=== PATIENT | male | born 1950 | race Caucasian/White ===

== ENCOUNTER → 2020-11-23 | Outpatient (CLI) | payer BC, OTHER ==
[~2020-11-23] MED LIST: ALLOPURINOL 30300 M1 PO; AMOXICILLIN 50500 MG PO; ASA81BEC PO; ATORVASTATIN CA80 MG PO; BENADRYL25 MG PO; BUDESONIDE EC3 MG PO; CARVEDILOL12.5 MG PO; L-LYSINE1000 M1 PO; MELATONIN10 M3 PO; NAPROSYN500 MG PO; OLMESARTAN-HCT1 EAC2 PO
== END ==
LOC: LAB 09:20
PROVIDERS: ATTEND Orthopaedic Surgery
DX: Z01.812 Encounter for preprocedural laboratory examination (principal); Z20.822 Contact with and (suspected) exposure to COVID-19

== ENCOUNTER 2020-11-28 11:33 | Day surgery (SDC) | payer BC, OTHER ==
[~2020-11-28] VITALS: Ht 5 cm; Wt 106.1 kg
[2020-11-28 12:36] VITALS: BP 150/55
[2020-11-28] MEDS ORDERED: NORCO5 PO (14:29)
[2020-11-28 15:16] VITALS: BP 150/55
--- NOTE | 2020-12-03 08:23 | O ---
[facility] [place] [address] OPERATIVE REPORT Name: FRANCESCA GUSMAN Room #: DEP [facility]#: [id number] Admission: 11/28/20 Attend Phys: Troy Melchor MD Discharge: 11/28/20 Date of : 54 Report #: [id number] THIS REPORT FOR: cc: Shirley Merchant MD,Shirley Melchor,Troy Izaguirre MD ~ DATE OF SERVICE: 11/28/2020 PREOPERATIVE DIAGNOSIS: Left knee medial meniscus tear. POSTOPERATIVE DIAGNOSES: 1. Left knee medial meniscus tear. 2. Grade 4 chondromalacia medial femoral condyle. 3. Grade 3 chondromalacia patella. PROCEDURES: 1. Left knee arthroscopy with partial medial meniscectomy. 2. Chondroplasty, medial femoral condyle. SURGEON: Troy Melchor MD. BOILER CLEANER: Mitzy Ontiveros PA-C. ANESTHESIA: LMA. TOURNIQUET TIME: 12 minutes. ESTIMATED BLOOD LOSS: Minimal. COMPLICATIONS: None. SPECIMENS: None. CONDITION UPON LEAVING THE OPERATING ROOM: Stable. INDICATIONS FOR PROCEDURE: The patient is a 70-year-old gentleman who has had medial-sided left knee pain and MRI scan shown to have a tear of the posterior horn of the medial meniscus as well as mild to moderate arthritic change. After discussion with him, he elected for left knee arthroscopy with medial meniscectomy and debridement as needed. DESCRIPTION OF PROCEDURE: Risks, benefits, alternatives, complications were discussed in detail with the patient including but not limited to risk of anesthesia, risk of damage to nerves, arteries, blood vessels, risk for infection, bleeding, risk for continued knee pain, need for reoperation. [address] [address] OPERATIVE REPORT Name: FRANCESCA GUSMAN Room #: DEP [facility] MMakayla.#: [id number] Admission: 11/28/20 Attend Phys: Troy Melchor MD Discharge: 11/28/20 Date of : 54 Report #: [id number] Informed consent was obtained from the patient. Left knee was appropriately marked in the preoperative holding area. IV Ancef was given for preoperative antibiotics. He was brought to the operating room and placed in the supine position on the operating room table. LMA anesthesia was induced without complication. Tourniquet was placed on the left thigh. Left lower extremity was prepped and draped in normal sterile fashion. Timeout was performed properly identifying the patient and procedure as well as the instrumentation. All in the operating room were in agreement. Left lower extremity was exsanguinated, tourniquet was inflated. Tourniquet time was approximately 12 minutes. Standard anterolateral portal was established with 11 blade through the skin. Arthroscope was introduced into the patellofemoral compartment, diagnostic arthroscopy was undertaken. Patellofemoral compartment was visualized and found to have grade 3 chondromalacia of the apex of the patella. Medial gutter was visualized and found to be without pathology. Medial compartment was visualized and medial portal was established under arthroscopic visualization. Probe was introduced into the medial compartment. There was noted to be a complex tear of the posterior horn of medial meniscus. This was trimmed back to a stable rim with arthroscopic biter and smoothed back with a shaver. There was also grade 4 chondromalacia of the medial femoral condyle with several unstable cartilaginous flaps. Chondroplasty of this area was performed. Notch was visualized and found to have an intact anterior cruciate ligament. Lateral compartment was visualized and found to have an intact lateral meniscus. Lateral gutter was visualized and found to be without pathology. After the scope was placed back in the patellofemoral compartment and all fluid was allowed to drain from the knee, knee was injected with 10 mL of 0.5% Marcaine. Incision was closed with 3-0 nylon. Soft dressing of Adaptic, 4 x 4, Webril, Jose wrap were applied. The patient tolerated this procedure well and went to recovery room under care of anesthesia postoperatively. <ELECTRONICALLY SIGNED> By: Troy Melchor MD 12/03/20 0823 1750 1807 Troy Melchor MD /nt
== END 2020-11-28 16:04 | disposition home or self-care (01) ==
LOC: TBA 11:33 → OR 11:33
PROVIDERS: ATTEND Orthopaedic Surgery
DX: M23.322 Other meniscus derangements, posterior horn of medial meniscus, left knee (principal); M94.262 Chondromalacia, left knee; I10 Essential (primary) hypertension; E78.5 Hyperlipidemia, unspecified; I25.2 Old myocardial infarction; Z98.890 Other specified postprocedural states; Z79.899 Other long term (current) drug therapy; Z87.891 Personal history of nicotine dependence; Z95.1 Presence of aortocoronary bypass graft; X58.XXXA Exposure to other specified factors, initial encounter; Y93.89 Activity, other specified; Y92.89 Other specified places as the place of occurrence of the external cause; Y99.8 Other external cause status
CPT/HCPCS: 50010; 50101; 50405; 56525; 57103; 57180; 58577; 58589; 62110; 62900; 70005

== ENCOUNTER → 2021-04-16 | Outpatient (CLI) | payer BC, OTHER ==
[~2021-04-16] MED LIST changes: +NORCO5 PO; +VALACYCLOVIR500 MG PO
[2021-04-16 11:44] LABS: HEMATOCRIT 36.6 % (42.0-52.0); HEMOGLOBIN 12.2 gm/dL (14.0-18.0); MCH 33.2 pg (26.0-34.0); MCHC 33.3 g/dL (28.0-37.0); MCV 99.7 fL (80.0-100.0); RBC 3.67 mil/uL (4.50-6.00); RDW 14.6 % (10.5-14.5); WBC 5.9 thou/uL (4.0-11.0)
[2021-04-16 11:46] LABS: URINE BILIRUBIN NEGATIVE (Negative); URINE BLOOD NEGATIVE (Negative); URINE CLARITY CLEAR; URINE COLOR YELLOW; URINE GLUCOSE-RANDOM* NEGATIVE (Negative); URINE KETONES NEGATIVE (Negative); URINE LEUKOCYTES-REFLEX NEGATIVE (Negative); URINE NITRITE-REFLEX NEGATIVE (Negative); URINE PROTEIN (DIPSTICK) NEGATIVE (Negative); URINE UROBILINOGEN 0.2 E.U./dl (0.2-1.0)
[2021-04-16 11:52] LABS: CALCIUM 9.4 mg/dL (8.5-10.1); CREATININE 1.5 mg/dL (0.7-1.3); POTASSIUM 4.1 mmol/L (3.5-5.1)
[2021-04-16 11:57] LABS: INR 0.97; PROTIME 10.6 Seconds (10.5-12.1)
--- NOTE | 2021-04-16 13:44 | EKG ---
[address] [address] ELECTROCARDIOGRAM REPORT Name: FRANCESCA GUSMAN [facility] [id number] Admission: 04/16/21 Attend Phys: Troy Melchor MD Discharge: Date of : 54 Report #: [id number] [facility] Test Date: 2021-04-16 Test Time: 11:20:58 Pat Name: FRANCESCA GUSMAN Department: Room: Gender: Merchandise Deliverer: RICARDO SALGADO : 1950 Requested By: Troy Melchor Order Number: [id number] : Fidencio Vasquez Measurements Intervals [place] Rate: 60 P: 41 OR: 210 QRS: 2 QRSD: 97 T: 92 QT: 406 QTc: 406 Interpretive Statements Sinus rhythm Probable left atrial enlargement Nonspecific T abnormalities, lateral leads No previous ECG available for comparison Electronically Signed On 04-16-2021 13:44:18 CDT by Fidencio Vasquez [email or web address] <ELECTRONICALLY SIGNED> By: Fidencio Vasquez MD, [facility] 04/16/21 1344 1120 1120 Fidencio Vasquez MD, FACC /EPI
== END ==
LOC: PAC
PROVIDERS: ATTEND Orthopaedic Surgery
DX: Z01.812 Encounter for preprocedural laboratory examination (principal); Z01.810 Encounter for preprocedural cardiovascular examination; M17.12 Unilateral primary osteoarthritis, left knee; Z91.048 Other nonmedicinal substance allergy status

== ENCOUNTER 2021-04-29 12:11 | Observation (INO) | payer BC, OTHER ==
[~2021-04-29] VITALS: Ht 175.3 cm; Wt 98.9 kg
--- NOTE | ~2021-04-29 | O ---
[facility] [place] [address] OPERATIVE REPORT Name: FRANCESCA GUSMAN Room #: 448-P [facility] Shady Nair#: [id number] Admission: 04/29/21 Attend Phys: Troy Melchor MD Discharge: Date of : 54 Report #: [id number] THIS REPORT FOR: cc: Shirley Merchant MD,Shirley Melchor,Troy Izaguirre MD ~ DATE OF SERVICE: 04/29/2021 PREOPERATIVE DIAGNOSIS: Left knee osteoarthritis. POSTOPERATIVE DIAGNOSIS: Left knee osteoarthritis. PROCEDURE: Left total knee arthroplasty using Navio robotic assistance. SURGEON: Troy Melchor MD. PROJECT DEVELOPMENT COORDINATOR: Mitzy Ontiveros PA-C. INDICATION FOR PROJECT DEVELOPMENT COORDINATOR: Throughout the case, extensive retraction, manipulation of the knee was required. This was afforded to me by my auction assistant. ANESTHESIA: LMA with adductor canal block. IMPLANTS: [employer]hew size 7 Journey II BCS Oxinium femur, size 5 tibia, size 10 polyethylene, and size 35 patella. TOURNIQUET TIME: 56 minutes. ESTIMATED BLOOD LOSS: 25 mL. COMPLICATIONS: None. SPECIMENS: None. CONDITION UPON LEAVING THE OR: Stable. INDICATIONS FOR PROCEDURE: The patient is a 70-year-old gentleman with left knee osteoarthritis. He had failed conservative measures for this and after discussion with him, he elected for left total knee arthroplasty. DESCRIPTION OF PROCEDURE: Risks, benefits, alternatives, complications were discussed in detail with the patient including but not limited to risk of anesthesia, risk of damage to nerves, arteries, blood vessels, risk for infection, bleeding, risk for continued knee pain, need for reoperation. Informed consent was obtained from the patient. Left knee was appropriately marked in the preoperative holding area. IV Ancef was given for preoperative [address] [address] OPERATIVE REPORT Name: FRANCESCA GUSMAN Room #: 448-P [facility] Shady Nair#: [id number] Admission: 04/29/21 Attend Phys: Troy Melchor MD Discharge: Date of : 54 Report #: [id number] antibiotics. He was brought to the operating room and placed in supine position on the operating room table. LMA anesthesia was induced without complication. Tourniquet was placed on the left thigh. Left lower extremity was prepped and draped in normal sterile fashion. Timeout was performed properly identifying the patient and procedure as well as the instrumentation and implants. All in the operating room in agreement. Left lower extremity was exsanguinated, tourniquet was inflated. Tourniquet time was 56 minutes. Standard midline approach to knee was made with 10 blade through the skin. Dissection was taken down sharply to the fascia and deep flaps were developed medially and laterally. Fresh 10 blade was used to make a medial parapatellar arthrotomy and the knee was inspected. There was severe medial compartment osteoarthritis with moderate patellofemoral compartment osteoarthritis. ACL and PCL were removed sharply. Reference pins were placed in the femur and the tibia. The knee was digitally mapped using the Navio robotic system. Intraoperative plan was made. We sized the size 7 femur, the size 5 tibia and a 10 spacer. After acceptance of the intraoperative plan, the distal femoral cut was made with Navio bur. Distal femoral cutting block was pinned in place and chamfer cuts were made. Attention was turned to the tibia, remainder of the menisci removed with Bovie cautery. Tibial resection guide was pinned in place and tibial resection was made. Flexion and extension gaps were checked and found to have good balance in flexion and extension both medially and laterally. Tibia sized, found to be a size 5. A size 5 tibial trial was placed, pinned and punched. Size 7 femoral trial was placed, box cut was made. This was then trialed with a size 10 polyethylene. The size 10 polyethylene demonstrated 1-2 mm of laxity medially and laterally throughout range of motion of the knee. A 9 mm of bone was resected from the posterior surface of the patella and a size 35 patellar trial button was placed, knee was taken through range of motion, found to be stable, found to have good patellar tracking. Trial components were removed. Bone ends were thoroughly irrigated with normal saline. A final size 5, tibia size 7 Journey II BCS Oxinium femur and a size 35 patella were cemented in place using standard cementation techniques. While the cement cured, a periarticular injection consisting of morphine, ropivacaine, epinephrine, Toradol was placed around the knee joint capsule. After the cement cured, the tourniquet was deflated. Hemostasis was obtained with Bovie cautery. Final size 10 polyethylene was placed. A gram of vancomycin was placed deep in the joint. Fascia was closed with 0 Vicryl. Skin was closed with 2-0 Vicryl, 3-0 Monocryl, Dermabond and a CECILIO dressing was applied. The patient tolerated this procedure well and went to recovery room under care of anesthesia postoperatively. By: 1444 1709 Troy Melchor MD /nt
--- NOTE | 2021-04-29 17:29 | NUR ---
Pt transferred to the unit joe PACU. Pain controlled. Dressing c/d/i. Polar care in place. KATHERINE hose and SCDs in place. IVF infusing. Family at bedside. Call light within reach. Fall precautions in place. Will give report to vish SILVA.
[2021-04-29 17:46] VITALS: BP 150/80
[2021-04-29 19:30] VITALS: BP 149/76
--- NOTE | 2021-04-30 01:54 | NUR ---
PLEASANT GENTLEMAN.LEFT KNEE WITH CECILIO DRSG, TEDS AND SCDS IN PLACE. PT RATES PAIN AT AROUND 3/10, NORCO GIVEN. PT ABLE TO STAND BY THE BEDSIDE AND USED URINAL. AFEBRILE. VSS, LEFT FOOT WITH GOOD CSM. NO FURTHER CONCERNS. HE MAKES NEEDS KNOWN.CALL LIGHT WITHIN REACH.
[2021-04-30 04:49] VITALS: BP 127/71
[2021-04-30 08:00] VITALS: BP 133/71
--- NOTE | 2021-04-30 10:29 | NUR ---
Assumed care of pt at 0700. Pt a&ox4. Pain controlled with prn pain medicine. Dressing c/d/i. Polar care in place. KATHERINE wan and SCDs in place. Pt worked with physical therapy this am and was cleared to go home. Call light within reach. Will continue to monitor.
--- NOTE | 2021-04-30 11:08 | NUR ---
Jean to anticipated dc home today. POD # left knee. Will requir fww, sent to provider plus to check.
[2021-04-30 11:56] VITALS: BP 133/71
== END 2021-04-30 12:40 | disposition home or self-care (01) ==
LOC: OR 12:11 → 4S 17:17
PROVIDERS: ADMIT Orthopaedic Surgery; ATTEND Orthopaedic Surgery
DX: M17.12 Unilateral primary osteoarthritis, left knee (principal); Z20.822 Contact with and (suspected) exposure to COVID-19; Z79.899 Other long term (current) drug therapy
CPT/HCPCS: 27447; S2900; 50010; 50101; 50415; 50954; 51130; 51225; 51320; 52001; 52282; 53000; 53078; 53365; 54118; 56527; 56528; 57095; 57103; 57110; 57127; 57180; 62110; 62900; 64042; 70005